=== PATIENT | female | born 1985 | race Hispanic/Latino ===

== ENCOUNTER 2017-08-01 15:00 | Inpatient (IN) | payer MEDICAID ==
[~2017-08-01] VITALS: Ht 157.5 cm; Wt 92.5 kg
[2017-08-01 15:21] LABS: HEMATOCRIT 34.6 % (36-48); MEAN CORPUSCULAR HEMOGLOBIN 27.6 pg (27.0-33.0); MEAN CORPUSCULAR HGB CONC 34.2 g/dL (32.0-36.0); MEAN CORPUSCULAR VOLUME 80.7 fL (79-99); PLATELET COUNT (AUTO) 273 K/uL (130-400); RED BLOOD CELL COUNT(AUTO) 4.29 MIL/uL (4.00-5.50); RED CELL DISTRIBUTION WIDTH 14.7 % (11.0-15.5); WHITE BLOOD COUNT (AUTO) 8.2 K/uL (4.8-10.8)
[2017-08-02] MEDS ORDERED: CEFAZOLIN SODIUM 1 GM VIAL IVP PRN (05:45)
[2017-08-02] MEDS: LACTATED RINGERS 1000ML 1,000 ML IV SCH ×2 (05:50→06:35)
[2017-08-02] MEDS ORDERED: LACTATED RINGERS 1000ML 1,000 ML IV ONE (07:47)
[2017-08-02] MEDS ORDERED: OXYTOCIN 10 USP UNITS/ML ONE ×2 (07:48→13:22)
[2017-08-02 09:38] VITALS: BP 124/69
[2017-08-02] MEDS ORDERED: OXYTOCIN-LR 20 UNITS/1000 ML 1,000 ML IV PRN (10:02)
[2017-08-02] MEDS ORDERED: MEPERIDINE-PF 75 MG/ML SYG IM PRN (10:15)
[2017-08-02] MEDS ORDERED: PROMETHAZINE HCL 25 MG/ML 1ML AMPULE IM PRN ×2 (10:15→11:00)
[2017-08-02] MEDS ORDERED: SODIUM CHLORIDE 0.9% 10 ML VIAL IVP PRN (10:15)
[2017-08-02] MEDS ORDERED: ONDANSETRON HCL 4 MG/2 ML 8 MG in SODIUM CHLORIDE 0.9% 50 ML IVP NR (11:00)
[2017-08-02] MEDS ORDERED: DiphenhydrAMINE HCL 50 MG/ML VIAL IVP PRN (11:00)
[2017-08-02] MEDS ORDERED: ONDANSETRON HCL 4 MG/2 ML VIAL IVP PRN ×2 (11:00)
[2017-08-02] MEDS ORDERED: NALOXONE HCL 0.4 MG/1 ML ML IVP PRN ×2 (11:00)
[2017-08-02] MEDS ORDERED: EPHEDRINE SULFATE 50 MG/ML AMPULE IVP PRN (11:00)
[2017-08-02] MEDS ORDERED: METOCLOPRAMIDE 10 MG/2 ML VIAL IVP PRN (11:00)
[2017-08-02] MEDS ORDERED: HYDROCODONE/ACETAMINOPHEN 5/325 MG TAB PO PRN (11:00)
[2017-08-02] MEDS ORDERED: MORPHINE SULFATE 2 MG/ML 1ML SYG IVP PRN (11:00)
[2017-08-02] MEDS: HYDROCODONE/ACETAMINOPHEN 5/325 MG TAB PO PRN (11:16)
[2017-08-02 12:25] VITALS: BP 121/58
[2017-08-02 16:30] VITALS: BP 127/65
[2017-08-02 19:20] VITALS: BP 114/57
[2017-08-02] MEDS: DEXTROSE 5 %-0.45 % NACL 1,000 ML IV PRN (20:23)
[2017-08-02 23:21] VITALS: BP 117/57
[2017-08-03] MEDS: DEXTROSE 5 %-0.45 % NACL 1,000 ML IV PRN (02:54)
[2017-08-03 03:23] VITALS: BP 115/59
[2017-08-03] MEDS: HYDROCODONE/ACETAMINOPHEN 5/325 MG TAB PO PRN (05:52)
[2017-08-03 06:26] LABS: MEAN CORPUSCULAR HEMOGLOBIN 27.5 pg (27.0-33.0); MEAN CORPUSCULAR HGB CONC 33.8 g/dL (32.0-36.0); MEAN CORPUSCULAR VOLUME 81.4 fL (79-99); PLATELET COUNT (AUTO) 231 K/uL (130-400); RED BLOOD CELL COUNT(AUTO) 3.56 MIL/uL (4.00-5.50); RED CELL DISTRIBUTION WIDTH 15.2 % (11.0-15.5); WHITE BLOOD COUNT (AUTO) 9.2 K/uL (4.8-10.8)
[2017-08-03] MEDS ORDERED: HYDROCODONE/ACETAMINOPHEN 5/325 MG TAB PO PRN (06:45)
[2017-08-03] MEDS ORDERED: LANOLIN 30GM OINTMENT TP PRN (06:45)
[2017-08-03] MEDS ORDERED: ACETAMINOPHEN EXTRA STRENGTH 500 MG TABLET PO PRN (06:45)
[2017-08-03] MEDS ORDERED: BISACODYL 10 MG SUPP.RECT RC PRN (06:45)
[2017-08-03 07:50] VITALS: BP 102/57
[2017-08-03] MEDS: DOCUSATE SODIUM 100 MG CAP PO SCH ×2 (08:33→20:39)
[2017-08-03] MEDS: SIMETHICONE 80 MG TAB.CHEW PO PRN ×3 (08:34→20:39)
[2017-08-03] MEDS: IBUPROFEN 600 MG TABLET PO PRN ×3 (08:35→23:42)
[2017-08-03 10:25] LABS: HEPATITIS Bs ANTIGEN SCREEN P Negative (Negative)
[2017-08-03 11:31] VITALS: BP 119/64
[2017-08-03 15:25] VITALS: BP 107/62
[2017-08-03 19:36] VITALS: BP 131/71
[2017-08-03 23:38] VITALS: BP 132/74
[2017-08-04 03:11] VITALS: BP 117/58
[2017-08-04 08:09] VITALS: BP 120/66
[2017-08-04] MEDS: DOCUSATE SODIUM 100 MG CAP PO SCH (08:56)
[2017-08-04] MEDS: SIMETHICONE 80 MG TAB.CHEW PO PRN (08:56)
[2017-08-04] MEDS: IBUPROFEN 600 MG TABLET PO PRN (08:57)
[2017-08-04 11:06] VITALS: BP 143/72
== END 2017-08-04 12:20 | disposition home or self-care (01) | DRG 540 ==
LOC: EDSTATUS 15:00 → LDH 08-02 05:30 → WSH 08-02 09:38
PROVIDERS: ADMIT Obstetrics & Gynecology; ATTEND Obstetrics & Gynecology
PROC: 10D00Z1 Extraction of Products of Conception, Low, Open Approach (ICD-10-PCS; principal; 2017-08-02 07:08)
DX: O34.211 Maternal care for low transverse scar from previous cesarean delivery (principal); Z37.0 Single live birth; Z3A.39 39 weeks gestation of pregnancy
CPT/HCPCS: 36415; 59510; 85027; 86592; 86850; 86900; 86901; 87340; A4344; A4450; A4606; J0690; J2590; J7120